=== PATIENT | female | born 1975 | race Two or more races ===

== ENCOUNTER 2017-11-12 21:27 | Emergency (ER) | payer BC ==
[2017-11-12 21:38] VITALS: TEMP 98.5
--- NOTE | 2017-11-12 22:02 | XR ---
EXAMINATION TYPE: XR hand complete LT DATE OF EXAM: 11/12/2017 COMPARISON: NONE HISTORY: Little finger pain TECHNIQUE: 3 views FINDINGS: I see no fracture nor dislocation. There is however extension deformity of the PIP joint of the little finger. IMPRESSION: Hyperextension deformity of the PIP joint of the little finger could relate to ligamentou s injury. No fracture seen.
[2017-11-12] MEDS ORDERED: traMADol 50 MG TAB PO STA (22:22)
--- NOTE | 2017-11-12 22:27 | ED ---
Upper Extremity HPI - General Chief Complaint: Extremity Injury, Upper Stated Complaint: Finger injury Time Seen by Provider: 11/12/17 22:09 Source: patient Mode of arrival: ambulatory Limitations: no limitations - History of Present Illness Initial Comments: 42-year-old male patient percents the emergency department today for evaluation of deformity to the left fifth finger. Patient states that a little over an hour ago she tripped over a raised edge and fell landing on her hand. Patient states that the finger appeared deformed and was painful. She denies any numbness to the finger. Patient denies taking anything for pain. She denies hitting her head or losing consciousness. She denies any other injuries. Patient denies any headache, neck pain, back pain, chest pain, shortness of breath, dizziness, weakness, abdominal pain, nausea, vomiting, or difficulties with bowel movements or urination. - Related Data Home Medications Medication Instructions Recorded Confirmed B Complex W-C No.20/Folic Acid 1 mg PO DAILY 11/12/17 11/12/17 [Renal Caps Softgel] Calcium Carbonate/Vitamin D3 1 tab PO BID 11/12/17 11/12/17 [Calcium 600-Vit D3 400 Caplet] Citalopram Hydrobromide [CeleXA] 10 mg PO DAILY 11/12/17 11/12/17 Citalopram Hydrobromide [CeleXA] 20 mg PO DAILY 11/12/17 11/12/17 Famotidine [Pepcid] 20 mg PO BID 11/12/17 11/12/17 Levothyroxine Sodium [Synthroid] 175 mcg PO HS 11/12/17 11/12/17 Metaxalone [Skelaxin] 400 mg PO BID 11/12/17 11/12/17 Potassium Chloride [Klor-Con 20] 20 meq PO BID 11/12/17 11/12/17 Spironolactone [Aldactone] 25 mg PO DAILY 11/12/17 11/12/17 Sucralfate [Carafate] 1 gm PO BID 11/12/17 11/12/17 Vitamin C/Biotin [Hair, Skin and 1 tab PO DAILY 11/12/17 11/12/17 Nails] busPIRone HCL [Buspar] 7.5 mg PO BID PRN 11/12/17 11/12/17 traMADol HCL [Ultram] 50 mg PO BID 11/12/17 11/12/17 Allergies Allergy/AdvReac Type Severity Reaction Status Date / Time lemon Allergy Rash/Hives Verified 11/12/17 22:47 Penicillins Allergy Rash/Hives Verified 11/12/17 22:47 pineapple Allergy Rash/Hives Verified 11/12/17 22:47 shellfish derived [Shellfish] Allergy Anaphylaxis Verified 11/12/17 22:47 strawberry Allergy Rash/Hives Verified 11/12/17 22:47 acetaminophen [From Tylenol] AdvReac Unknown Verified 11/12/17 22:47 codeine AdvReac Nausea & Verified 11/12/17 22:47 Vomiting Proton Pump Inhibitors AdvReac Unknown Verified 11/12/17 22:47 Review of Systems ROS Statement: Those systems with pertinent positive or pertinent negative responses have been documented in the HPI. ROS Other: All systems not noted in ROS Statement are negative. Past Medical History Additional Past Medical History / Comment(s): renal failure. in remission for papillary thryoid cancer. History of Any Multi-Drug Resistant Organisms: None Reported Past Surgical History: Cholecystectomy, Hernia Repair Additional Past Surgical History / Comment(s): thyroidectomy. lipoma removal. vein stripping. Past Psychological History: No Psychological Hx Reported Smoking Status: Never smoker Past Alcohol Use History: None Reported Past Drug Use History: None Reported General Exam Limitations: no limitations General appearance: alert, in no apparent distress, other (This is a well- developed, well-nourished adult female patient in no acute distress. Vital signs upon presentation are temperature 98.5F, pulse 82, respirations 16, blood pressure 156/99, pulse ox 99% on room air.) Head exam: Present: atraumatic, normocephalic, normal inspection Eye exam: Present: normal appearance, PERRL, EOMI. Absent: scleral icterus, conjunctival injection, periorbital swelling ENT exam: Present: normal exam, normal oropharynx, mucous membranes moist Neck exam: Present: normal inspection, full ROM. Absent: tenderness, meningismus, lymphadenopathy Respiratory exam: Present: normal lung sounds bilaterally. Absent: respiratory distress, wheezes, rales, rhonchi, stridor Cardiovascular Exam: Present: regular rate, normal rhythm, normal heart sounds. Absent: systolic murmur, diastolic murmur, rubs, gallop, clicks Extremities exam: Present: full ROM, tenderness (Tenderness over the PIP joint on the left fifth finger. Finger is red and edematous.), normal capillary refill, other (Skin to the remainder of the hand is pink, warm, and dry. Cap refills less than 3 seconds. Radial pulses 2+ and equal bilaterally.). Absent : normal inspection, pedal edema, joint swelling, calf tenderness Neurological exam: Present: alert, oriented X3, CN II-XII intact Psychiatric exam: Present: normal affect, normal mood Skin exam: Present: warm, dry, intact, normal color. Absent: rash Course Vital Signs 11/12/17 11/12/17 21:35 23:13 Temperature 98.5 F Pulse Rate 82 78 Respiratory 16 20 Rate Blood Pressure 156/99 142/61 O2 Sat by Pulse 99 97 Oximetry Medical Decision Making - Medical Decision Making 42-year-old female patient presented to the emergency department today for evaluation of deformity to the left fifth finger. X-ray did show a deformity at the PIP joint. Physical exam did show some swelling and redness to the finger. I did discuss findings with the patient. We did discuss option of a quick closed reduction with no anesthetic and also performing digital block. Patient refuses digital block. Finger was reduced easily. Patient tolerated procedure well. Postreduction x-ray shows satisfactory alignment. Patient will be discharged home to follow-up with orthopedics if she has any further problems. She is instructed to use a home pain medication. Return parameters discussed in detail. She verbalizes understanding and agrees with this plan. - Radiology Data Radiology results: report reviewed, image reviewed 3 views of the left hand are obtained. There is no fracture nor dislocation noted. There is however extension deformity of the PIP joint of the little finger. Impression by Dr. Andrade shows hyperextension deformity of the PIP joint a little finger could relate to ligamentous injury. No fracture seen. 3 views of the left little finger obtained. There is anatomic position of the IP joint of the little finger left hand. There is reduction of the hyperextension deformity. There is mild cortical irregularity of the posterior base of the nail sounds consistent with small nondisplaced chip fracture. Impression by Dr. Andrade shows probably intra-articular small chip fracture of the posterior base of the middle phalanx. Satisfactory reduction. Disposition Clinical Impression: Dislocation of little finger Narrative: Left Disposition: HOME SELF-CARE Condition: Good Instructions: Finger Dislocation (ED) Additional Instructions: Keep splint in place for comfort and support. Apply ice 20 minutes at a time at least 4 times daily. Follow-up with orthopedics if you have any further issues with the finger. Return here immediately for any new, worsening, or concerning symptoms. Is patient prescribed a controlled substance at d/c from ED?: No Referrals: None,Stated [REFERRING] - 1-2 days Time of Disposition: 23:03
--- NOTE | 2017-11-12 22:50 | XR ---
EXAMINATION TYPE: XR finger LT DATE OF EXAM: 11/12/2017 COMPARISON: NONE HISTORY: Post reduction TECHNIQUE: 3 views FINDINGS: There is anatomic position of the IP joint of the little finger left hand. There is reducti on of the hyperextension deformity. There is mild cortical irregularity of the posterior base of the middle phalanx consistent with small nondisplaced chip fracture. IMPRESSION: There is probably intra-articular small chip fracture of the posterior base of the middle phalanx. Satisfactory reduction.
[2017-11-12 23:14] VITALS: BP 142/61; PULSE 78; RESP 20
== END 2017-11-12 23:13 | disposition home or self-care (01) ==
LOC: EC 21:27
DX: S63.287A Dislocation of proximal interphalangeal joint of left little finger, initial encounter (principal); Z79.891 Long term (current) use of opiate analgesic; Z79.899 Other long term (current) drug therapy; Z88.0 Allergy status to penicillin; Z88.5 Allergy status to narcotic agent; Z88.8 Allergy status to other drugs, medicaments and biological substances; Z91.013 Allergy to seafood; Z91.018 Allergy to other foods; E89.0 Postprocedural hypothyroidism; Z85.850 Personal history of malignant neoplasm of thyroid; W18.09XA Striking against other object with subsequent fall, initial encounter
CPT/HCPCS: 26770; 99283